=== PATIENT | male | born 1975 | race Two or more races ===

== ENCOUNTER 2020-08-05 06:49 | Emergency (ER) | payer MEDICAID ==
[~2020-08-05] VITALS: Ht 162.6 cm; Wt 65.8 kg
--- NOTE | 2020-08-05 07:05 | NUR ---
ASSUME PT CARE. PT IS RESTING IN BED. PER REPORT, BYSTANDER CALLED AFTER NOTICING PT SLEEPING IN THE STREETS. PT GOT VERY AGRESSIVE. UPON EMS ARRIVAL. PT IS SLEEPING UPON INITIAL ASSESSMENT. REFUSING TO TALK TO STAFF. ON MONITOR W/ STABLE VITALS. WILL CONTINUR TO MONITOR.
[2020-08-05 07:20] LABS: BASOPHILS % (AUTO) 0.5 % (0.0-2.0); EOSINOPHILS % (AUTO) 3.4 % (0.0-6.0); HEMATOCRIT 39 % (39-51); HEMOGLOBIN 13.1 g/dL (13.5-17.5); LYMPHOCYTES % (AUTO) 28.8 % (20.0-44.0); MEAN CORPUSCULAR HGB CONC 33 g/dl (31.0-36.0); MEAN CORPUSCULAR VOLUME 93 fL (80-96); MONOCYTES # (AUTO) 0.4 /CMM (0.1-1.30); MONOCYTES % (AUTO) 5.6 % (2.0-12.0); NEUTROPHILS # (AUTO) 4.3 /CMM (1.8-8.9); NEUTROPHILS % (AUTO) 61.7 % (43.0-81.0); PLATELET COUNT (AUTO) 238 /CMM (150-450); RED BLOOD CELL COUNT(AUTO) 4.24 MIL/uL (4.5-6.0); WHITE BLOOD COUNT (AUTO) 6.9 K/uL (4.3-11.0)
[2020-08-05 07:37] LABS: ALANINE AMINOTRANSFERASE 20 U/L (12-78); ALBUMIN 3.2 g/dL (3.4-5.0); ALCOHOL, BLOOD < 3 mg/dL (0-0); ALKALINE PHOSPHATASE 113 U/L (46-116); ASPARTATE AMINOTRANSFERASE 19 U/L (15-37); BILIRUBIN,DIRECT 0.2 mg/dL (0.0-0.2); BILIRUBIN,TOTAL 0.6 mg/dL (0.2-1.0); CALCIUM, SERUM 8.2 mg/dL (8.5-10.1); CARBON DIOXIDE 26 mmol/L (21-32); CHLORIDE 105 mmol/L (98-107); CREATININE 0.6 mg/dL (0.6-1.3); GLUCOSE 115 mg/dL (74-106); POTASSIUM 3.5 mmol/L (3.5-5.1); SODIUM SERUM 139 mmol/L (136-145); TOTAL PROTEIN, SERUM 6.2 g/dL (6.4-8.2); UREA NITROGEN, BLOOD 13 mg/dL (7-18)
[2020-08-05 07:43] LABS: APPEARANCE,URINE CLEAR (CLEAR); BILIRUBIN,URINE NEGATIVE (NEGATIVE); BLOOD, URINE TRACE Ery/uL (NEGATIVE); COLOR,URINE YELLOW (YELLOW); KETONES,URINE NEGATIVE (NEGATIVE); LEUKOCYTE ESTERASE ,URINE NEGATIVE (NEGATIVE); NITRITE, URINE NEGATIVE (NEGATIVE); PH,URINE 6.5 (5.0-8.0); PROTEIN,URINE NEGATIVE (NEGATIVE); UGLUCOSE NEGATIVE (NEGATIVE); UROBILINOGEN,URINE 0.2 EU/dL (0.2)
[2020-08-05 07:43] LABS: ACETAMINOPHEN 0 ug/ml (10-30); SALICYLATE 1.8 mg/dL (2.8-20.0)
[2020-08-05 08:16] LABS: BACTERIA,URINE None seen /HPF (None Seen); RBC,URINE 0-2 /HPF (0-2); SQUAMOUS EPITHELIAL CELL,UR Rare /HPF (None Seen); WBC,URINE 0-2 /HPF (0-3)
--- NOTE | 2020-08-05 09:37 | NUR ---
BREAKFAST TRAY PROVIDED. TOLERATED PO WELL.
--- NOTE | 2020-08-05 12:32 | NUR ---
PATIENT BECAME AGGRESSIVE. CODE AVILES ACTIVATED
--- NOTE | 2020-08-05 13:23 | NUR ---
RAPID COVID SWAB DONE AND SENT TO LAB
--- NOTE | 2020-08-05 13:56 | NUR ---
FOOD TRAY PROVIDED. TOLERATED PO WELL.
--- NOTE | 2020-08-05 15:12 | NUR ---
PATIENT IN BED ASLEEP. EASILY AROUSABLE BY VOICE. HOOKED TO MONITOR. VSS. WILL CONTINUE TO MONITOR ACCORDINGLY
--- NOTE | 2020-08-05 17:12 | NUR ---
PATIENT IN BED ASLEEP. EASILY AROUSABLE BY VOICE. HOOKED TO MONITOR. VSS. WILL CONTINUE TO MONITOR ACCORDINGLY. SITTER AT BEDSIDE FOR SAFETY.
--- NOTE | 2020-08-05 19:09 | NUR ---
PATIENT IN BED ASLEEP. EASILY AROUSABLE BY VOICE. HOOKED TO MONITOR. VSS. WILL CONTINUE TO MONITOR ACCORDINGLY. SITTER AT BEDSIDE FOR SAFETY.
[2020-08-05] MEDS ORDERED: IV NS 0.9% 1,000 ML IV ONE (20:00)
[2020-08-05] MEDS ORDERED: ZIPRASIDONE MESYLATE 20 MG/VIAL VIAL IM ONE ×2 (20:00→20:01)
--- NOTE | 2020-08-05 20:00 | NUR ---
PT SCREAMING/YELLING AT SITTER, ATTEMPTED TO CALM PATIENT, CALLED DR MARR WITH NEW ORDERS
[2020-08-05] MEDS ORDERED: WATER FOR INJECTION,STERILE 10 ML ONE (20:01)
--- NOTE | 2020-08-05 23:00 | NUR ---
PT SLEEPING, ON MONITOR, -SOB, NOT IN ACUTE DISTRESS, VSS.
--- NOTE | 2020-08-06 04:00 | NUR ---
Patient is resting comfortably in bed with eyes closed. Easily aroused. VSS
--- NOTE | 2020-08-06 07:30 | NUR ---
PT IS OK FOR DISCHARGE. REFUSING TO LEAVE WITHOUT HIS BELONGINGS. NURSING AUTOMATION SOFTWARE ENGINEER CALLED REGARDING THE MATTER.
--- NOTE | 2020-08-06 11:25 | NUR ---
PT IS AWAKE, PROVIDED W/ FOOD TRAY. STABLE VITALS. SITTER AT BEDSIDE. WILL CONTINUE TO MONITOR.
--- NOTE | 2020-08-06 12:52 | NUR ---
PT IS AWAKE. REFUSING TO ANSWER QUESTIONS. STABLE VITALS. SITTER AT BEDSIDE.
--- NOTE | 2020-08-06 17:27 | NUR ---
PT IS AAOX3, AMBULATORY W/ STEADY GAIT. PROVIDED W/ MEAL. HOMELESS DISCHARGE SIGNED. AMBULATORY WITH STEADY. DISCHARGE IN STABLE CONDITION.
[2020-08-06 17:36] VITALS: BP 124/76
== END 2020-08-06 17:37 | disposition home or self-care (01) ==
LOC: EDBD 06:51 → ER 06:51
DX: R41.82 Altered mental status, unspecified (principal); R91.8 Other nonspecific abnormal finding of lung field; Z20.828 Contact with and (suspected) exposure to other viral communicable diseases
CPT/HCPCS: 36415; 70450; 71045; 80048; 80076; 80305; 80307; 80329; 81001; 85025; 87081; 87426; 96360; 96372; 99285; C9803; G0480; J3486; J7030 ×2; 81000-TC